=== PATIENT | male | born 1995 | race Two or more races ===

== ENCOUNTER 2022-04-04 18:48 | Emergency (ER) | payer BC, OTHER ==
[2022-04-04 18:59] VITALS: BP 154/83; PULSE 95; RESP 18; TEMP 98; BMI 29.0
[2022-04-04] MEDS ORDERED: predniSONE 20 MG TABLET (UD) PO ONE (19:31)
[2022-04-04] MEDS ORDERED: predniSONE 20 MG TABLET (UD) ONE (19:34)
[2022-04-04] MEDS: ALBUTEROL SO4 2.5/IPRATROPIUM 0.5 INH SOL 3 ML VIAL.NEB. NEB SCH ×2 (19:37→19:38)
== END 2022-04-04 21:05 | disposition home or self-care (01) ==
LOC: JER 18:48 → JERFT 18:48
PROC: 3E0F7GC Introduction of Other Therapeutic Substance into Respiratory Tract, Via Natural or Artificial Opening (ICD-10-PCS; principal; 2022-04-04)
DX: J45.21 Mild intermittent asthma with (acute) exacerbation (principal)
CPT/HCPCS: 71046-TC-FY; 99283-25